=== PATIENT | male | born 1990 | race African-American/Black ===

== ENCOUNTER → 2016-07-29 | Outpatient (REF) ==
[~2016-07-29] MED LIST: NORCO 325 MG-51 TAB PO; PREDNISONE20 MG PO; ZITHROMAX 250M250 MG PO
== END ==
LOC: ZLAB.WCH 14:49
DX: Z01.89 Encounter for other specified special examinations (principal)

== ENCOUNTER 2016-07-31 14:48 | Emergency (ER) | payer MEDICAID ==
[~2016-07-31] VITALS: Ht 172.7 cm; Wt 70.5 kg
[~2016-07-31 14:48] MED LIST changes: -NORCO 325 MG-51 TAB PO
[2016-07-31 14:49] VITALS: BP 116/56; TEMP 99.1
[2016-07-31 16:40] LABS: MEAN CELL VOLUME 89 fl (80.0-100.0); MEAN CORPUSCULAR HGB CONC 33 g/dl (33.0-37.0); MEAN PLATELET VOLUME 9.3 fl (7.4-10.4); PLATELET COUNT 334 K/mm3 (130-400); RED BLOOD COUNT 4.01 M/mm3 (4.20-5.60); REDCELL DISTRIBUTION WIDTH-CV 13.4 % (11.5-14.5); WHITE BLOOD COUNT 15.2 K/mm3 (4.8-10.8)
[2016-07-31 16:41] LABS: ADD PATHOLOGY DIFF REVIEW NO; HEMATOCRIT 35.6 % (42.0-52.0); HEMOGLOBIN 11.9 g/dl (13.5-18.0); MEAN CORPUSCULAR HEMOGLOBIN 30 pg (27.0-31.0)
[2016-07-31 16:50] LABS: ALBUMIN 3.5 gm/dL (3.5-5.0); BILIRUBIN,TOTAL 0.9 mg/dL (0.0-1.0); CALCIUM 8.6 mg/dL (8.4-10.2); CREATININE, serum 1.05 mg/dL (0.66-1.25); TOTAL PROTEIN 7.3 gm/dL (6.4-8.2)
[2016-07-31 16:59] LABS: BAND 6 % (0-10); EOSINOPHIL 1 % (0-4); NEUTROPHILS 71 % (42.0-75.2); PLATELET ESTIMATE NORMAL (NORMAL); TOTAL CELLS COUNTED 100
[2016-07-31] MEDS ORDERED: NORCO 325 MG-51 TAB PO (17:28)
[2016-07-31 18:40] VITALS: PULSE 84
== END 2016-07-31 18:40 | disposition home or self-care (01) ==
LOC: COL.ER 14:48
PROVIDERS: Emergency Medicine
DX: B27.90 Infectious mononucleosis, unspecified without complication (principal); J02.9 Acute pharyngitis, unspecified; R59.0 Localized enlarged lymph nodes
CPT/HCPCS: J1100; J7030; Q9967